=== PATIENT | male | born 1965 | race Caucasian/White ===

== ENCOUNTER 2018-01-08 22:44 | Observation (INO) ==
--- NOTE | 2018-01-09 00:29 | Internal Med History&Physical ---
Date of Encounter: 01/09/18 Time of Encounter: 00:24 Internal Medicine - H&P: HPI Chief complaint: Flank pain Admitted From: Direct Admit Plans for Post Hospital Care: Home History of present illness: Mr. 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 Was also 5 mm nonobstructive stone in the lower pole left kidney. The patient had presented there with severe right flank pain noticed 10 with associated nausea vomiting but no hematemesis. This has been going on for a day. Due to the findings above Dr. Quach from urology was contacted and will see the patient consultation here at [facility]. Patient was stable throughout her stay there. Labs showed no leukocytosis with a white count of 9.8. Creatinine of 1.18 which is above baseline. Urinalysis was indeterminate with large blood, many bacteria and negative leukocyte esterase and negative nitrite. Patient was given IV fluids, IV morphine 8 mg total, IV Toradol 30 mg, IV Zofran, IV ceftriaxone, and Flomax. 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 REPAIR OF RIGHT SHOULDER, PARTIAL DISLOCATION - Social History Smoking Status: Never smoker Smokeless Tobacco Status: Yes (chewing tobacco) Alcohol use: occasionally Drug use: none Internal Medicine - H&P: Meds Rivaroxaban [Xarelto] 20 mg PO DAILY 11/14/17 [History] Allergy/AdvReac Type Severity Reaction Status Date / Time No Known Allergies Allergy Verified 01/08/18 20:29 All Systems PM: A 10-system review of systems was performed and is negative for pertinent findings except as documented above in the HPI. Review of systems: All systems reviewed are negative except for as mentioned above - Constitutional Exam: GEN: NAD HEENT: AT, NC, No cyanosis, oral mucosa is moist, No JVD Lymphatics: No lymphadenoapthy Eyes: Extrocular muscles intact, anicteric CVS:RRR. S1, S2, No m/r/g RESP: CTAB ABD: Soft, NT, ND, +BS EXT: No edema, No rashes, 2+ DP NEURO: Nonfocal, CN II-XII intact, No focal motor or sensory deficits Psych: Cooperative, Not anxious or depressed - Assessment and plan (1) Calculus of kidney Status: Acute Assessment and plan: We will admit to the hospitalist and consult urology. IV fluids. Pain control. IV antiemetics. NPO. We will put patient on IV ceftriaxone as started at the outside facility and follow-up on the final cultures sent from [place]. (2) SISSY (acute kidney injury) Status: Acute Assessment and plan: Likely obstructive uropathy. The patient is on IV fluids. We will check labs in the morning. Avoid nephrotoxins. (3) Hypercoagulable state Status: Acute Assessment and plan: Hold Xarelto for now in anticipation of any surgical needs. - Time Spent With Patient Total time spent is greater than 50% in coordination of care (as documented) at patient's floor/unit and/or counseling patient:
[2018-01-09] MEDS ORDERED: Ondansetron 4 MG/2 ML VIAL IVP PRN ×2 (00:31→19:33)
[2018-01-09] MEDS ORDERED: Naloxone 0.4 MG/ML INJ IVP PRN ×2 (00:32→19:33)
[2018-01-09] MEDS ORDERED: Acetaminophen 325 MG TABLET PO PRN ×2 (00:32→19:33)
[2018-01-09] MEDS: 0.9 % Sodium Chloride 1,000 ML IVC SCH ×4 (01:57→23:27)
[2018-01-09 05:07] LABS: Basophils % 0.3 %; Eosinophils % 0.4 %; Hematocrit 35.9 % (37.5-50.1); Hemoglobin 11.6 g/dL (12.9-16.9); Immature Granulocytes % 0.4 % (0-4); Lymphocytes # 1.6 K/mcL (0.6-4.6); Lymphocytes % 20.5 %; Mean Corpuscular HGB Conc 32.3 g/dL (31.6-35.5); Mean Corpuscular Hemoglobin 26.9 pg (28.0-33.3); Mean Corpuscular Volume 83.1 fL (83.0-100.0); Mean Platelet Volume 9.7 fL (9.4-12.4); Monocytes # 0.5 K/mcL (0.0-1.3); Monocytes % 6.5 %; Neutrophils # 5.7 K/mcL (1.6-8.9); Platelet Count 186 K/mcL (140-400); Red Blood Count 4.32 M/mcL (4.19-5.50); Red Cell Distribution Width 14.8 % (11.5-14.5); Segmented Neutrophils % 71.9 %
[2018-01-09] MEDS: *HR* HYDROcodone/Acet 5/325 mg TABLET PO PRN ×2 (05:30→11:25)
[2018-01-09 05:37] LABS: BUN/Creatinine Ratio 19 (6-26); Blood Urea Nitrogen 19 mg/dL (6-20); Calcium 8.8 mg/dL (8.6-10.3); Carbon Dioxide 23 mEq/L (23-29); Chloride 107 mEq/L (98-107); Glucose 114 mg/dL (70-105); Magnesium 1.9 mg/dL (1.6-2.6); Osmolality,Calculated 287 (280-300); Potassium 4.9 mEq/L (3.5-5.1); Sodium 137 mEq/L (136-145); eGFR For Non-African Americans > 60 (> 60)
[2018-01-09] MEDS: *HR* OxyCODONE/APAP 5/325 TABLET PO PRN ×2 (08:29→16:25)
--- NOTE | 2018-01-09 08:35 | Urology - Consult Note ---
Addendum entered and electronically signed by Vamshi Quach MD 01/09/18 11:41: The patient was seen and examined with the physician's assistant professor of anthropology. I agree with the assessment and plan. He has a right proximal ureteral stone. I recommend proceeding with a cystoscopy and right ureteral stent placement. He is aware of the risks of the procedure. He was informed of the risks of the procedure including but not limited to bleeding, infection, injury to other structures, need for further procedures, stent irritation, ureteral perforation, need for nephrostomy tube, need for open repair, risks unforeseen, and the risk of anesthesia. He is willing to proceed. We will arrange for definitive stone treatment at a later date. Original Note: Date of Encounter: 01/09/18 Time of Encounter: 07:40 - Assessment and Plan (1) Obstruction of right ureteropelvic junction (UPJ) due to stone Current Visit: Yes Status: Acute Assessment and plan: Patient is a 52-year-old male who presents with a history of an obstructing right UPJ stone, 1 cm with moderate hydronephrosis and left lower pole renal stone, 5 mm. Patient was admitted for pain control and placed on Rocephin for antibiotic prophylaxis. Vital signs are stable and afebrile. White blood cell count is reassuring, and renal function is normal. Discussed surgical risks and benefits with the patient. The patient verbalized understanding, and he is prepared to undergo cystoscopy and right ureteral stent placement this afte rnoon. He will remain nothing by mouth. Patient is aware that definitive stone extraction will require at least 2 separate staged procedures. (2) Calculus of kidney Current Visit: Yes Status: Acute Urology CN:HPI Consult date: 01/09/18 Reason for consult Urology: Other (right 1cm UPJ stone) History of present illness: Patient is a 52 year old male who presents with a history of worsening right flank pain, nausea and vomiting. Patient was initially evaluated at [facility] and subsequently transferred to [facility] for CT findings that revealed a 1cm right obstructing UPJ calculus with moderate hydronephrosis and a non-obstructing 5mm left renal stone. Patient has a prior history of nephrolithiasis with his last stone occurring 3-4 years ago. Patient has been able to pass all previous stones by medical expulsion. Family history for renal stones or pathology is unknown. Patient does have a past medical history significant for DVT, PE, and Factor V Leiden Mutation requiring lifelong anticoagulation. Patient states symptoms are currently well controlled, and he denies severe flank pain, gross hematuria, frequency, urgency, hesitancy, fever or chills. 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 REPAIR OF RIGHT SHOULDER, PARTIAL DISLOCATION - Social History Smoking Status: Never smoker Smokeless Tobacco Status: Yes (chewing tobacco) Alcohol use: occasionally Drug use: none Medications and Allergies Rivaroxaban [Xarelto] 20 mg PO DAILY 11/14/17 [History] Allergy/AdvReac Type Severity Reaction Status Date / Time No Known Allergies Allergy Verified 01/08/18 20:29 Review of Systems - Constitutional no chills, no fatigue, no fever(s) - EENT Nose, mouth and throat: no dizziness, no headache(s), no sore throat - Cardiovascular no chest pain, no diaphoresis, no dyspnea - Respiratory no cough, no dyspnea - Gastrointestinal abdominal pain, nausea, no vomiting - Genitourinary no difficulty urinating, no dysuria, no hematuria, no urinary frequency, no ur inary hesitancy, no urinary urgency - Musculoskeletal no back pain, no muscle weakness - Integumentary no erythema, no rash, no swelling - Neurological no confusion, no syncope - Psychiatric no anxiety, no confusion - Hematologic/Lymphatic no easy bleeding, no easy bruising - Allergic/Immunologic no throat swelling, no wheezing Exam Initial Vital Signs Temp Pulse Resp BP Pulse Ox 98.0 F 53 14 116/70 97 01/09/18 01:20 01/09/18 01:20 01/09/18 01:20 01/09/18 01:20 01/09/18 01:20 - General physical appearance Present: well developed, no distress, moderate pain - Eyes Present: PERRL, normal ocular movement - ENT Present: normal mucosa, no hearing loss, no congestion - Neck Present: no masses, trachea midline - Respiratory Present: normal respiratory effort - Cardiovascular Cardiovascular exam IM: RRR - Abdomen Abdomen: Present: soft, tender (right CVAT, RLQ pain ) - Integumentary Present: no rash, no abnormal pigmentation - Neurologic Present: normal coordination - Musculoskeletal Present: other (no pedal edema ) Urology Results - Labs 01/09/18 04:34 01/09/18 04:34 Abnormal lab results Hgb 11.6 g/dL (12.9-16.9) L 01/09/18 04:34 Hct 35.9 % (37.5-50.1) L 01/09/18 04:34 MCH 26.9 pg (28.0-33.3) L 01/09/18 04:34 RDW 14.8 % (11.5-14.5) H 01/09/18 04:34 Glucose 114 mg/dL (70-105) H 01/09/18 04:34 Diabetes panel 01/09/18 Range/Units 04:34 Sodium 137 (136-145) mEq/L Potassium 4.9 D (3.5-5.1) mEq/L Chloride 107 (98-107) mEq/L Carbon Dioxide 23 (23-29) mEq/L BUN 19 (6-20) mg/dL Creatinine 1.02 (0.70-1.30) mg/dL Glucose 114 H (70-105) mg/dL Calcium 8.8 (8.6-10.3) mg/dL Calcium panel 01/09/18 Range/Units 04:34 Calcium 8.8 (8.6-10.3) mg/dL Pituitary panel 01/09/18 Range/Units 04:34 Sodium 137 (136-145) mEq/L Potassium 4.9 D (3.5-5.1) mEq/L Chloride 107 (98-107) mEq/L Carbon Dioxide 23 (23-29) mEq/L BUN 19 (6-20) mg/dL Creatinine 1.02 (0.70-1.30) mg/dL Glucose 114 H (70-105) mg/dL Calcium 8.8 (8.6-10.3) mg/dL Adrenal panel 01/09/18 Range/Units 04:34 Sodium 137 (136-145) mEq/L Potassium 4.9 D (3.5-5.1) mEq/L Chloride 107 (98-107) mEq/L Carbon Dioxide 23 (23-29) mEq/L BUN 19 (6-20) mg/dL Creatinine 1.02 (0.70-1.30) mg/dL Glucose 114 H (70-105) mg/dL Calcium 8.8 (8.6-10.3) mg/dL All other labs normal. - Imaging CT scan - abdomen: report reviewed, image reviewed CT scan - pelvis: report reviewed, image reviewed Consult Discharge Plan - Plan Referrals: Noam Soares MD [Primary Care Provider] -
--- NOTE | 2018-01-09 14:10 | Internal Med Progress Note ---
Hospitalist Progress Note - Encounter Date of Encounter: 01/09/18 Time of Encounter: 09:00 - Subjective Interval History: Patient complaining of right-sided flank pain. No fever. On pain medications - Exam Vitals: Temp Pulse Resp BP Pulse Ox 98.8 F 50 16 122/75 94 01/09/18 11:24 01/09/18 11:24 01/09/18 11:24 01/09/18 11:24 01/09/18 11:24 Exam: GEN: NAD HEENT: AT, NC, No cyanosis, oral mucosa is moist, No JVD Lymphatics: No lymphadenoapthy Eyes: Extrocular muscles intact, anicteric CVS:RRR. S1, S2, No m/r/g RESP: CTAB ABD: Soft, NT, ND, +BS EXT: No edema, No rashes, 2+ DP NEURO: Nonfocal, CN II-XII intact, No focal motor or sensory deficits Psych: Cooperative, Not anxious or depressed - Assessment and Plan (1) Calculus of kidney Current Visit: Yes Status: Acute Assessment and Plan: Urology consult on case, plan for stenting. (2) Hypercoagulable state Current Visit: No Status: Acute Assessment and Plan: Hold Xarelto for now in anticipation of any surgical needs. DVT Prophylaxis: On xarelto, hold for surgery now. EPCDs. - Time Spent with Patient Total time spent is greater than 50% in coordination of care (as documented) at patient's floor/unit and/or counseling patient: 30 min 25 - 35 minutes Plan of Care Discussed with: patient Internal Medicine: Result - Labs CBC & Chem 7: 01/09/18 04:34 01/09/18 04:34 Labs: Short CBC 01/09/18 Range/Units 04:34 WBC 7.9 (4.3-11.1) K/mcL Hgb 11.6 L (12.9-16.9) g/dL Hct 35.9 L (37.5-50.1) % Plt Count 186 (140-400) K/mcL Neutrophils # 5.7 (1.6-8.9) K/mcL BMP 01/09/18 04:34 Sodium 137 Potassium 4.9 D Chloride 107 Carbon Dioxide 23 BUN 19 Creatinine 1.02 Glucose 114 H Calcium 8.8 Consult Discharge Plan - Plan Referrals: Noam Soares MD [Primary Care Provider] -
--- NOTE | 2018-01-09 17:00 | Anesthesia Evaluation PreOp ---
Date of Encounter: 01/09/18 Time of Encounter: 18:16 - Past History Planned Operation: Cystoscopy Cardiac History: Denies any Significant Hx Pulmonary History: Other (H/O PE) FLUMER History: Denies Any Significant HX Other Medical History: Renal (kidney stones), Other (factor V Leiden) Anesthesia History: No Prior Anesthetic Complications, Past Anesthesia Alcohol Use: occasionally Drug use: none Medications and Allergies Rivaroxaban [Xarelto] 20 mg PO DAILY 11/14/17 [History] Allergy/AdvReac Type Severity Reaction Status Date / Time No Known Allergies Allergy Verified 01/08/18 20:29 - Meds/Allergy Pre-op Review Medications Reviewed: Yes Allergies Reviewed: Yes Beta Blockers on Current Med List: No Anesthesia Results - Labs 01/09/18 04:34 01/09/18 04:34 - Imaging Additional studies: 10/07/2016 Echo Impressions: LVEF 60%. Normal left ventricular size and systolic function. Dilated RV with normal function. Mild pulmonic regurgitation. No pulmonary hypertension. Anesthesia Exam Vital Signs/O2 Sat, Most Current Temp Pulse Resp BP Pulse Ox 97.9 F 49 16 120/71 96 01/09/18 16:37 01/09/18 16:37 01/09/18 16:37 01/09/18 16:37 01/09/18 16:37 Height: 6'2''/1.88m Weight: 274 lbs/124.5 kg NPO (# of Hours): 8 Pain Scale: 3 Pain Scale Used: Numeric (1 - 10) - HEENT Pupil (Motor): EOMI Mallampati: III Teeth: Normal Oral Opening: Greater than 3 - FLUMER LOC: Oriented FLUMER Motor: Normal RUE, Normal RLE, Normal LLE, Normal Face, Deficit LUE FLUMER Sensory: Normal: RUE, LUE, RLE, LLE, Face - Cardiac Rhythm: Regular Murmur: None - Pulmonary Breath Sounds: bilateral Clear Respiratory Effort: Symmetrical Anesthesia Assess/Plan ASA Score: 2 Level of consciousness: Cooperative, Oriented, Tranquil Anesthetic Plan: General Monitoring Plan: Standard Monitors Recovery Plan: PACU
[2018-01-09] MEDS ORDERED: *HR* Midazolam HCl 2 MG/2 ML VIAL ONE (18:02)
[2018-01-09] MEDS ORDERED: *HR* FentaNYL (PF) 100 MCG/2 ML VIAL ONE (18:02)
[2018-01-09] MEDS ORDERED: *HR* Propofol 200 MG/20 ML VIAL IVP ONE (18:02)
[2018-01-09] MEDS ORDERED: Ondansetron 4 MG/2 ML VIAL ONE ×2 (18:04→18:44)
[2018-01-09] MEDS ORDERED: Dexamethasone 4 MG/ML VIAL ONE ×2 (18:04→18:44)
[2018-01-09] MEDS ORDERED: Lidocaine -MPF 2% 2 ML VIAL ONE (18:04)
[2018-01-09] MEDS ORDERED: Ketorolac 30 MG/ML VIAL ONE (18:44)
[2018-01-09] MEDS ORDERED: *HR* HYDROmorphone (PF) 1 MG/ML SYRINGE IVP PRN (18:55)
[2018-01-09] MEDS ORDERED: *HR* Promethazine 25 MG/ML VIAL IVP PRN (18:55)
[2018-01-09] MEDS ORDERED: *HR* OxyCODONE Immed Rel 5 MG TABLET PO PRN (18:55)
--- NOTE | 2018-01-09 18:56 | Operative Note ---
Date of procedure: 01/09/18 Pre-op diagnosis: Right ureteral stone Post-op diagnosis: same Procedure: Cystoscopy, right ureteral stent placement Implants: 4.8 x 28 cm double-J stent Complications: None Anesthesia: GETA Surgeon: Vamshi Quach Was there an head start assistant teacher present: No Estimated blood loss (cc): 0 Specimen: None Condition: stable Disposition: PACU Procedure in Detail: Indications: Mr. Edgar is a 52-year-old male who has a history of nephrolithiasis. He had a CT which showed a right proximal ureteral stone. He elected to undergo a cystoscopy and right ureteral stent placement. He was aware of the risks of the procedure including but not limited to bleeding, infection, injury to other structures, need for further procedures, stent irritation, need for nephrostomy tube, need for open repair, risks otherwise unforeseen, and the risk of anesthesia. He is willing to proceed. Procedure in Detail: After informed consent was obtained the patient was brought back to the operating room and placed in supine position. A time out was performed. General anesthesia was administered and an LMA was placed. He was then placed in the lithotomy position. He was prepped and draped in the usual sterile fashion. C ystoscopy was performed. The anterior urethra was normal. There was no evidence of bladder tumors. The ureteral orifices were in the normal orthotopic position. There was no duplication of the ureteral orifices. The sensor wire was placed in the left ureteral orifice. The wire was then brought up into the kidney under fluoroscopic guidance. A 4.8 Gren[place] by 28cm JJ stent was then placed. The dangle strings were removed. The bladder was drained. The patient was then awakened from general anesthesia and brought to recovery room in good condition. All sponge, needle, and instrument counts were correct.
--- NOTE | 2018-01-09 19:21 | Anesthesia Evaluation Post Op ---
Date of Encounter: 01/09/18 Time of Encounter: 19:20 - Vital Signs Vital Signs: Vital Signs/O2 Sat, Most Current Temp Pulse Resp BP Pulse Ox 98.3 F 71 20 122/81 94 01/09/18 19:00 01/09/18 19:10 01/09/18 19:10 01/09/18 19:10 01/09/18 19:10 - Lungs Lungs: Clear Ascult./Percussion - Airway Airway: Non-obstructed - Cardiovascular Regular Rate - Mental Status Mental Status: Alert & Oriented, Answers Appropriately - Pain Pain Scale: 0 Pain Scale used: Numeric (1 - 10) - Nausea Vomiting Nausea Vomiting: Not Present - Hydration Hydration: Ice chips, Has not voided - Discharge PostOp Status: Transfer Patient to floor
[2018-01-09] MEDS ORDERED: *HR* HYDROcodone/Acet 5/325 mg TABLET PO PRN (19:33)
[2018-01-09] MEDS ORDERED: *HR* OxyCODONE/APAP 5/325 TABLET PO PRN (19:33)
[2018-01-09] MEDS ORDERED: cefTRIAXone 2,000 MG in Water for inj. (sterile) 20 ML 20 ML IVPB SCH (23:00)
--- NOTE | 2018-01-10 08:05 | Urology Progress Note ---
Addendum entered and electronically signed by Vamshi Quach MD 01/10/18 08:07: Patient seen and examined with the PA. Agree with assessment and plan. Okay to d/c home today. Urology will arrange for definitive ureteroscopic stone extraction next week. Original Note: Date of Encounter: 01/10/18 Time of Encounter: 08:01 - Assessment and Plan (1) Obstruction of right ureteropelvic junction (UPJ) due to stone Current Visit: Yes Status: Acute Assessment and plan: Patient is a 52-year-old male who presents one day postoperatively from cystoscopy and right ureteral stent placement. Vital signs are stable and afebrile. White blood cell count and renal function are reassuring. Patient is aware he will require at least 1 more procedure for a definitive stone extraction. Patient will be contacted by [facility] for outpatient stone extraction next week. I discussed postoperative expectations with indwelling ureteral stent, and patient verbalized understanding. Patient may be discharged from urologic standpoint. (2) Calculus of kidney Current Visit: Yes Status: Inactive Progress Note Subjective: feels better Narrative: POD #1. Patient seen and examined sitting upright in bed in no apparent distress. Patient is tolerating normal diet without nausea or vomiting. Patient is voiding without difficulty. Pain is presently well controlled. Objective Initial Vital Signs Temp Pulse Resp BP Pulse Ox 98.0 F 53 14 116/70 97 01/09/18 01:20 01/09/18 01:20 01/09/18 01:20 01/09/18 01:20 01/09/18 01:20 - General physical appearance Present: well developed, no distress, no pain - Respiratory Present: normal expansion, normal respiratory effort - Abdomen Present: soft, non tender - Integumentary Present: no rash, no abnormal pigmentation - Musculoskeletal Present: normal posture - Psychiatric Present: oriented to time, oriented to person, oriented to place, speech is normal, memory intact - Labs 01/09/18 04:34 01/09/18 04:34 Consult Discharge Plan - Plan Referrals: Noam Soares MD [Primary Care Provider] -
[2018-01-10] MEDS: 0.9 % Sodium Chloride 1,000 ML IVC SCH (08:07)
[2018-01-10] MEDS ORDERED: *HR* Rivaroxaban 10 MG TABLET PO SCH (09:00)
[2018-01-10 10:34] VITALS: BP 111/68
--- NOTE | 2018-01-10 10:34 | Discharge Summary ---
- NOTES TO OUTPATIENT PROVIDER Notes to Outpatient Provider: 1. F/U with urology as outpatient as scheduled. Orders not resulted at time of discharge: Pending orders 01/09/18 19:40 Bedside Swallowing Evaluation [EVAL] Routine Date of Encounter: 01/10/18 Time of Encounter: 09:00 - Discharge Diagnosis (1) Calculus of kidney Priority: Primary Status: Inactive (2) Hypercoagulable state Priority: Secondary Status: Acute Hospital course: Mr. Edgar is a 52 year old male admitted as right-sided kidney stone with obstruction. Urology consult was called. Ureter stent has been placed. After his procedure, patient feels much better, no further pain/nausea. Urology cleared patient to discharge home. Continue follow-up with urology as outpatient. I have seen and examined this patient today. Patient is AAO 3, denies flank pain. Vitals are stable. No fever. Mild hematuria generally improved from previously. Consider patient has factor V lendan deficiency, will restart xarelto. Patient was advised to watch hematuria and if it is getting worse, came back to ER for evaluation. Patient showed understanding and agree. - Time Spent with Patient Total time spent providing and/or coordinating discharge services: 30 minutes Less than 30 minutes - Discharge Medications Home Medications: Rivaroxaban [Xarelto] 20 mg PO DAILY 11/14/17 [History] Allergies/Adverse Reactions: Allergy/AdvReac Type Severity Reaction Status Date / Time No Known Allergies Allergy Verified 01/08/18 20:29 Date of admission: 01/09/18 01:05 Primary care physician: Noam Soares MD Consults: 01/09/18 00:32 Consult to Urology [CONS] Routine Consulting Provider: Alyshay Michaela Reason for Consult: Kidney stone Call Completed: Yes Discharging clinician: Chico Hu Anticipated date of discharge: 01/10/18 - Constitutional Vitals: Temp Pulse Resp BP Pulse Ox 98.1 F 45 20 127/79 95 01/10/18 07:05 01/10/18 07:05 01/10/18 07:05 01/10/18 07:05 01/10/18 07:05 General appearance: Present: A&O X 3, no acute distress, answers questions appropriately Exam: in NAD - Head Head exam: Present: atraumatic, normocephalic - Eye Eye exam: Present: PERRL, conjuntiva pink, sclera anicteric Pupils: Present: PERRL - Neck Neck exam general surgery: Present: supple, trachea midline. Absent: lymphadenopathy - Respiratory Respiratory exam: Present: CTAB. Absent: accessory muscle use, rales, rhonchi, wheezes - Cardiovascular Cardiovascular exam: Present: RRR, +S1, +S2. Absent: diastolic murmur, gallop, rubs, systolic murmur - GI/Abdominal GI/Abdominal exam: Present: normal bowel sounds, soft, no peritoneal signs. Absent: distended, tenderness - Extremities Exam Extremities exam: Present: warm, radial pulses palpable and symmetrical. Absent: calf tenderness, cyanotic, pedal edema - Neurological Exam Neurological exam: Present: CN II-XII intact, oriented X3, no focal deficits. Absent: pronater drift, facial droop, speech deficit - Skin Skin exam: Present: dry, intact - Patient Status Disposition: Home, Self-Care Condition: Good Functional capacity at discharge: independent ambulation Overall status at discharge: patient is back to baseline - Discharge Instructions Instructions: Ureteral Stent Placement (DC) Follow Up With: Noam Soares MD [Primary Care Provider] - Vamshi Quach MD [Partnered Physician] - - Diet and Activity Activity: increase activity as tolerated Diet: regular diet
[2018-01-10] MEDS ORDERED: cefTRIAXone 2,000 MG in Water for inj. (sterile) 20 ML 20 ML IVP SCH (22:00)
== END 2018-01-10 11:50 | disposition home or self-care (01) ==
LOC: 2ANU → SUATTDRO 01-09 01:05
PROVIDERS: ADMIT Pediatrics; ATTEND Internal Medicine